=== PATIENT | female | born 1970 | race Caucasian/White ===

== ENCOUNTER 2017-06-13 18:39 | Emergency (ER) | payer OTHER ==
[~2017-06-13] VITALS: Ht 167.6 cm; Wt 72.1 kg
[2017-06-13 18:43] VITALS: BP_SYST 114; BP_SYST 132; BP_DIAS 71; BP_DIAS 89
[2017-06-13 20:01] VITALS: BP 102/68
[2017-06-13] MEDS ORDERED: NEOMYCIN/POLYMYXIN/BACITRACIN 0.9 GM/1 PKT TP ONE (20:01)
== END 2017-06-13 20:03 | disposition home or self-care (01) ==
LOC: MED 18:39
DX: S61.211D Laceration without foreign body of left index finger without damage to nail, subsequent encounter (principal); W23.0XXD Caught, crushed, jammed, or pinched between moving objects, subsequent encounter
CPT/HCPCS: 99283

== ENCOUNTER 2019-08-15 11:21 | Emergency (ER) | payer OTHER ==
[~2019-08-15] VITALS: Ht 152.4 cm; Wt 76.9 kg
[2019-08-15 11:49] VITALS: BP 150/67
--- NOTE | 2019-08-15 11:49 | NUR ---
Patient ambulated to bed 12. RN evaluating patient at bedside.
--- NOTE | 2019-08-15 11:49 | NUR ---
PT ARRIVED TO ED C/O BARR X THIS AM. DESECIBES IT PRESSURE AND RATES PAIN AT A 8/10. NO OBVIOUS DEFORMITY NOTED. DENIES ANY TRUAMA OR INJURY. VSS. PT HAS STEADY GAIT. PT SATES SOME BLURRY VISION BUT CAN STILL SEE. PERRLA 3MM. PATIENT POSITIONED FOR COMFORT; HOB ELEVATED; BEDRAILS UP X2; BED DOWN. ER MD MADE AWARE OF PT STATUS. NKA. DENIES ANY PMH.
--- NOTE | 2019-08-15 12:00 | NUR ---
Dr. Dodd evaluating patient at bedside.
--- NOTE | 2019-08-15 12:22 | NUR ---
Pt taken to CT via w/c.
[2019-08-15] MEDS ORDERED: KETOROLAC 30 MG/ML VIAL IM ONE (12:35)
[2019-08-15 14:12] VITALS: BP 117/71
== END 2019-08-15 14:12 | disposition home or self-care (01) ==
LOC: MED 11:21
DX: R51 Headache (principal)
CPT/HCPCS: 70450; 96372; 99284; J1885